=== PATIENT | male | born 1975 | race Caucasian/White ===

== ENCOUNTER → 2016-10-27 | Outpatient (CLI) | payer OTHER ==
--- NOTE | 2016-10-27 13:10 | DX ---
Chest, Two Views October 27, 2016, 1215 Hours History: S27.0, S22.41, right rib fracture and pneumothorax. Skiing injury. Comparison: October 09, 2016. Findings: Cardiac silhouette is within normal range. No pneumonia, congestive heart failure, pleura l effusion, or pneumothorax. Stable alignment of the anterior aspect of the right first rib and costo chondral junction with increasing callus formation suggesting healing. No evidence of new right fract ures. No pneumothorax. Impressions 1. No pneumothorax. 2. No acute pulmonary disease.
== END ==
LOC: FIMAGING 12:11
PROVIDERS: ATTEND Surgery
DX: S22.31XD Fracture of one rib, right side, subsequent encounter for fracture with routine healing (principal); Y93.23 Activity, snow (alpine) (downhill) skiing, snowboarding, sledding, tobogganing and snow tubing